=== PATIENT | female | born 1985 | race African-American/Black ===

== ENCOUNTER → 2016-07-20 | Outpatient (CLI) | payer MEDICAID ==
[2016-07-20 10:24] LABS: BASO % 0.5 % (0.0-1.0); EOS # 0.1 K/mm3 (0.0-0.50); EOS % 1.7 % (0.0-3.0); LYMPH # 1.8 K/mm3 (1.5-4.5); LYMPH % 24.3 % (24.0-44.0); MEAN CORPUSCULAR HEMOGLOBIN 30.7 pg (27.0-33.0); MEAN CORPUSCULAR HGB CONC 33.1 g/dl (32.0-36.5); MEAN CORPUSCULAR VOLUME 92.9 fl (80.0-96.0); MONO # 0.3 K/mm3 (0.0-0.8); MONO % 4.6 % (0.0-5.0); NEUTROPHILS # 4.8 K/mm3 (1.8-7.7); NEUTROPHILS % 65.8 % (36.0-66.0); RED CELL DISTRIBUTION WIDTH 12.9 % (11.5-14.5); WHITE BLOOD COUNT 7.2 K/mm3 (4.0-10.0)
[2016-07-20 11:19] LABS: CONTROL LINE INT CTR LINE PRESENT; HIV SCRN NEGATIVE (NEGATIVE); HIV SCRN1 NEGATIVE (NEGATIVE)
== END ==
LOC: M LAB 08:29
PROVIDERS: ATTEND Obstetrics & Gynecology
DX: Z34.83 Encounter for supervision of other normal pregnancy, third trimester (principal)

== ENCOUNTER → 2016-07-23 | Outpatient (CLI) | payer MEDICAID ==
--- NOTE | 2016-07-23 10:33 | REP ---
OB ultrasound, 07/23/2016: Indication: 34-yovx-7-day gestation with EDC 08/06/2016. Assess anatomy, biophysical profile, cervical length, EFW, REHAN. Supervision of . Comparison: None. Findings: Date of last menstrual period 10/31/2015. Based on last menstrual period, fetus should be 38 week 0 day gestational age with ERIC 08/06/2016. At this time, single intrauterine fetus is noted in breech presentation of 38 week 0 day gestational age by ultrasound today. ERIC is 08/06/2016. Findings: Cervix is closed, 1.7 mm in length, imaged transvaginally. The placenta is anterior, grade II, without previa or abruption. heart rate 120 beats per minute by M-mode. Amniotic fluid index 9.1 cm, with expected range 7.3-23.9 cm. Subjectively, the amniotic fluid volume is within normal limits. Biophysical profile score is 8/8. Estimated weight is 3153 grams corresponding to 45th percentile based on dates from last menstrual period and today's ultrasound. Umbilical artery systolic to diastolic ratio 2.68, with expected range 1.6-2.6, with resistive index 0.63. cranium, choroid plexus, cavum, lungs diaphragm, left-sided stomach, three-vessel cord, kidneys, bladder are within normal limits. face and profile, four-chamber heart, sagittal and transverse spine are suboptimally visualized due to position. Impression: Single intrauterine fetus in breech presentation of 38 week 0 day gestational age according to last menstrual period and today's ultrasound. ERCI 08/06/2016. Anterior grade two placenta without previa or abruption. Subjectively the amniotic fluid volume is within normal limits. Biophysical profile score 8/8; heart rate 120 beats per minute by M-mode. Cervical length is 1.7 cm measured transvaginally. Umbilical artery systolic to diastolic ratio 2.68, borderline elevated, resistive index 0.63 within normal range. Nuchal cord was not visualized. Suboptimal visualization of face and profile, four-chamber heart and spine. pharmacy technologist spoke with Dr. Noguera regarding cervical length and Dr. Noguera stated it was okay for patient to go home. Signed by Wendy Niño MD 07/23/2016 08:06 P
== END ==
LOC: M RAD 08:38
DX: Z36 Encounter for antenatal screening of mother (principal); O32.1XX1 Maternal care for breech presentation, fetus 1; Z3A.37 37 weeks gestation of pregnancy